=== PATIENT | male | born 1970 | race Caucasian/White ===

== ENCOUNTER 2020-04-06 23:28 | Emergency (ER) | payer OTHER ==
[~2020-04-06 23:28] MED LIST: DOXYCYCLINE HY100 MG PO
[2020-04-07 00:31] LABS: HEMOGLOBIN 16.5 gm/dl (14.0-17.5); RED BLOOD COUNT 5.36 M/UL (4.20-5.50); WHITE BLOOD COUNT 10.2 K/UL (4.5-11.0)
[2020-04-07 00:48] LABS: BUN/CREATININE RATIO 15 (0-10)
== END 2020-04-07 01:25 | disposition home or self-care (01) ==
LOC: ER1 23:28
PROVIDERS: Emergency Medicine
DX: R10.13 Epigastric pain (principal); R11.0 Nausea
CPT/HCPCS: 36415; 71045; 80053; 82550; 82553; 83690; 83874; 84484; 85025; 99284

== ENCOUNTER 2020-04-20 05:54 | Emergency (ER) | payer OTHER ==
[2020-04-20 08:55] LABS: HEMOGLOBIN 15.4 gm/dl (14.0-17.5); RED BLOOD COUNT 5.2 M/UL (4.20-5.50); WHITE BLOOD COUNT 11.6 K/UL (4.5-11.0)
[2020-04-20 09:24] LABS: BUN/CREATININE RATIO 11 (0-10)
[2020-04-20] MEDS ORDERED: BENTYL 20MG TAB20 MG PO (11:19)
[2020-04-20] MEDS ORDERED: ZOFRAN ODT 4 MG4 MG PO (11:19)
[2020-04-20] MEDS ORDERED: PROTONIX40 MG PO (11:19)
== END 2020-04-20 11:30 | disposition home or self-care (01) ==
LOC: ER1 05:54
PROVIDERS: Family Medicine
DX: K80.20 Calculus of gallbladder without cholecystitis without obstruction (principal); I10 Essential (primary) hypertension
CPT/HCPCS: 36415; 80053; 81001; 82550; 82553; 83690; 83874; 84484; 85025; 96372; 99284; J0500

== ENCOUNTER → 2020-04-23 | Outpatient (CLI) | payer OTHER ==
[~2020-04-23] MED LIST changes: +BENTYL 20MG TAB20 MG PO; +PROTONIX40 MG PO; +ZOFRAN ODT 4 MG4 MG PO
== END ==
LOC: KOH-I 08:56
DX: R10.9 Unspecified abdominal pain (principal); K76.0 Fatty (change of) liver, not elsewhere classified
CPT/HCPCS: 76705